=== PATIENT | female | born 1980 | race African-American/Black ===

== ENCOUNTER 2019-04-18 00:07 | Emergency (ER) | payer MEDICAID ==
[~2019-04-18] VITALS: Ht 160 cm; Wt 69.0 kg
[2019-04-18] MEDS ORDERED: HYDROCODONE/ACETAMINOPHEN 5/325MG TABLET PO ONE (05:45)
[2019-04-18 08:18] VITALS: BP 119/94
== END 2019-04-18 08:20 | disposition home or self-care (01) ==
LOC: ER 00:07
DX: S16.1XXA Strain of muscle, fascia and tendon at neck level, initial encounter (principal); S80.12XA Contusion of left lower leg, initial encounter; F12.10 Cannabis abuse, uncomplicated; F17.200 Nicotine dependence, unspecified, uncomplicated; J45.909 Unspecified asthma, uncomplicated; V49.9XXA Car occupant (driver) (passenger) injured in unspecified traffic accident, initial encounter; Y93.89 Activity, other specified; Y92.89 Other specified places as the place of occurrence of the external cause; Y99.8 Other external cause status
CPT/HCPCS: 72040; 73590; 81025; 99283

== ENCOUNTER 2022-01-13 22:09 | Emergency (ER) | payer MEDICAID ==
[~2022-01-13] VITALS: Ht 165.1 cm; Wt 65.0 kg
[2022-01-13] MEDS ORDERED: HYDROCODONE/ACETAMINOPHEN 5/325MG TABLET PO ONE (22:45)
[2022-01-13] MEDS ORDERED: TETANUS, DIPHTHERIA, PERTUSSIS VAC/PF 0.5ML (>10YR OLD) IM ONE (23:30)
[2022-01-13] MEDS ORDERED: BACITRACIN ZINC OINT UDPKT TOP ONE (23:30)
[2022-01-14] MEDS ORDERED: HYDR-4001 MT (00:43)
[2022-01-14] MEDS ORDERED: IBUP-2029 MT (00:43)
[2022-01-14 01:16] VITALS: BP 136/68
== END 2022-01-14 01:18 | disposition home or self-care (01) ==
LOC: ER 22:09
DX: S82.292A Other fracture of shaft of left tibia, initial encounter for closed fracture (principal); M79.18 Myalgia, other site; V49.49XA Driver injured in collision with other motor vehicles in traffic accident, initial encounter; Y93.89 Activity, other specified; Y92.89 Other specified places as the place of occurrence of the external cause; Y99.8 Other external cause status; F12.10 Cannabis abuse, uncomplicated; J45.909 Unspecified asthma, uncomplicated
CPT/HCPCS: 29505; 73060; 73110; 73562; 73590; 90471; 90715; 99284